=== PATIENT | male | born 2000 | race Caucasian/White ===

== ENCOUNTER 2023-05-22 08:48 | Outpatient (RCR) | payer OTHER | END 2023-05-24 | LOC: M ST 08:48 | PROVIDERS: ATTEND Internal Medicine | DX: F80.89 Other developmental disorders of speech and language (principal) ==

== ENCOUNTER 2023-05-29 08:49 | Outpatient (RCR) | payer OTHER | END 2023-06-24 | LOC: M ST 08:49 | PROVIDERS: ATTEND Internal Medicine | DX: F80.89 Other developmental disorders of speech and language (principal) ==

== ENCOUNTER → 2023-07-23 | Outpatient (RCR) | payer OTHER | LOC: M ST 08:05 | PROVIDERS: ATTEND Internal Medicine | DX: R47.82 Fluency disorder in conditions classified elsewhere (principal) ==

== ENCOUNTER 2023-08-13 07:46 | Outpatient (RCR) | payer OTHER | END 2023-08-23 | LOC: M ST 07:46 | PROVIDERS: ATTEND Internal Medicine | DX: F98.5 Adult onset fluency disorder (principal) ==